=== PATIENT | male | born 1975 | race Caucasian/White ===

== ENCOUNTER → 2018-09-14 07:46 | Day surgery (SDC) | payer OTHER ==
[~2018-09-14 07:46] MED LIST: Buffered Lidocaine 0.9% SYRIN* 5 ML/SYR SYRINGE INTRADERM ONE; Dexamethasone TAB* 4 MG ONE; Dexamethasone TAB* 4 MG PO ONE; DiMENhydriNATE IV* 50 MG/ML VIAL IV PUSH PRN; Famotidine IV* 10 MG/ML 2 ML (20 mg) IV ONE; Famotidine IV* 10 MG/ML 2 ML (20 mg) ONE; Glycopyrrolate IV* 0.2 MG/ML 1 ML VIAL ONE; KETAMINE HCL* 50 MG/ML 10 ML VIAL ONE; Labetalol IV* 5 MG/ML 20 ML VIAL ONE; Lidocain 1% EPI 1:100,000 * 30 ML MDV ONE; Lidocaine 2% PF * 5 ML VIAL ONE; Midazolam* 1 MG/ML 5 ML VIAL (5 MG) ONE; Morphine VIAL* 4 MG/ML VIAL (1 ml vial) IV PRN; Naloxone* 0.4 MG/ML 1 ML VIAL IV PRN; Ondansetron ODT TAB* 4 MG ONE; Ondansetron TAB* 4 MG PO ONE; PROCHLORPERAZINE INJ 5 MG/ML 2 ML VIAL IV PRN; Propofol* 10 MG/ML 20 ML BTL ONE; fentaNYL* 50 MCG/ML 2 ML VIAL (100 MCG VIAL) IV PRN; fentaNYL* 50 MCG/ML 2 ML VIAL (100 MCG VIAL) ONE; hydrALAZINE IV* 20 MG/ML VIAL ONE; oxyCODONE/Acetamin 5/325 MG* TAB ONE; oxyCODONE/Acetamin 5/325 MG* TAB PO PRN
[2018-09-14 13:32] VITALS: BP 139/93
--- NOTE | 2018-09-14 14:41 | OP ---
DATE OF OPERATION: 09/14/18 - [facility] DATE OF : 75 SURGEON: Abelardo Myers MD BRICKLAYER PAVING BRICK: Marcos Ledesma MD PRE-OP DIAGNOSIS: Left branchial cleft cyst. POST-OP DIAGNOSIS: Left branchial cleft cyst. OPERATIVE PROCEDURE: Excision of left branchial cleft cyst. INDICATIONS: This is a 42-year-old male who has had intermittent swelling of the left neck for several years. Fine needle aspiration was benign. The clinical picture was one of a probable branchial cleft cyst. ESTIMATED BLOOD LOSS: Less than 5 cc. SPECIMEN: Apparent second branchial cleft cyst submitted intact in formalin. DESCRIPTION OF PROCEDURE: On 09/14/18, the patient was brought to the operating room. General anesthesia was induced and the patient was orally intubated. The patient was positioned on a shoulder roll. His left neck was marked. Approximately 7 cc of 1% lidocaine with 1:100,000 epinephrine was infiltrated into the subcutaneous tissue. The patient was then prepped with Betadine and draped sterilely. A time-out was performed. A 15-blade was used to make an incision overlying the cyst. This was approximately 2 cm below the angle of the mandible. Dissection was undertaken through the skin, subcutaneous fat and platysma using a 15-blade and Bovie cautery. Subplatysmal flaps were then raised superiorly and inferiorly. The cyst was then exposed. It was painstakingly elevated off the anterior border of the sternocleidomastoid muscle off the jugular vein and off the XIth cranial nerve. Bipolar cautery was used throughout the procedure after skin was incised. At no point was the cyst wall breached. Once the cyst was entirely removed, the wound was copiously irrigated. A Valsalva was performed. A couple of small areas of oozing were controlled with the bipolar cautery. The wound was then closed in layers. Platysma layer was closed with 3-0 Vicryl. Skin was closed with 4-0 nylon. Steri-Strips and Mastisol were applied. The patient was then extubated and returned to the PACU in stable condition. [id number] #: [id number] [facility]
== END | disposition home or self-care (01) ==
LOC: OR 07:46
PROVIDERS: ATTEND Otolaryngology
DX: Q18.0 Sinus, fistula and cyst of branchial cleft (principal); F17.210 Nicotine dependence, cigarettes, uncomplicated
CPT/HCPCS: 88304; A9270-GY; J0360; J2250; J2704; J3010; J8540